=== PATIENT | male | born 1995 | race Caucasian/White ===

== ENCOUNTER 2017-10-29 20:30 | Emergency (ER) | payer OTHER ==
[2017-10-29] MEDS: ACETAMINOPHEN 325 MG TABLET. PO ×2 (21:22)
[2017-10-29 22:06] LABS: INFLUENZA A PATIENT NEGATIVE (NEGATIVE); INFLUENZA B PATIENT NEGATIVE (NEGATIVE); OBC FLU VALID
== END 2017-10-29 22:12 | disposition home or self-care (01) ==
LOC: ER 22:12
DX: J02.9 Acute pharyngitis, unspecified (principal); Z88.0 Allergy status to penicillin
CPT/HCPCS: 87804; 87804-59; 99284